=== PATIENT | female | born 1985 | race American Indian/Alaskan Native ===

== ENCOUNTER 2019-11-19 08:09 | Emergency (ER) | payer OTHER ==
--- NOTE | 2019-11-19 08:32 | Emergency Department Report ---
HPI - General Time Seen by Provider: 11/19/19 08:23 - HPI HPI: 34-year-old female presents to the emergency department via EMS from [facility] with a complaint of hypotension. The patient had her vital signs checked as part of their routine and she was found to have a low blood pressure with a systolic of about 76. EMS arrived and the patient's blood pressure was normal at that time but she had to be transferred per protocol. The patient says that she is feeling well. She is currently at [facility] secondary to some previous suicidal ideations and/or attempt of a [place] overdose on Saturday, 5 days ago. She has a past medical history of CHF, mechanical heart valve replacement. She did not take anything, nor was given anything, for the low blood pressure prior to presentation today. ED Review of Systems ROS: Stated complaint: LOW BP Other details as noted in HPI Comment: All other systems reviewed and negative Constitutional: denies: chills, fever Respiratory: denies: cough, shortness of breath Cardiovascular: denies: chest pain, palpitations Gastrointestinal: denies: abdominal pain, vomiting Musculoskeletal: denies: back pain, arthralgia Neurological: denies: headache, weakness Physical Exam - Physical Exam Physical Exam: GENERAL: The patient is well-developed well-nourished. HENT: Normocephalic. Atraumatic. Patient has moist mucous membranes. EYES: Extraocular motions are intact. NECK: Supple. Trachea is midline. CHEST/LUNGS: Clear to auscultation. There is no respiratory distress noted. HEART/CARDIOVASCULAR: Regular. There is no tachycardia. ABDOMEN: Abdomen is soft, nontender. Patient has normal bowel sounds. SKIN: Skin is warm and dry. NEURO: The patient is awake, alert, and oriented. The patient is cooperative. The patient has no focal neurologic deficits. Normal speech. MUSCULOSKELETAL: There is no tenderness or deformity. There is no evidence of acute injury. ED Medical Decision Making - Lab Data Result diagrams: 11/19/19 08:36 11/19/19 08:36 - EKG Data -: EKG Interpreted by Me EKG shows normal: sinus rhythm, axis, intervals, QRS complexes (Right bundle branch block, left posterior fascicular block), ST-T waves Rate: normal - EKG Data When compared to previous EKG there are: previous EKG unavailable Interpretation: other (RBBB, LPFB) - Medical Decision Making This patient presents to the emergency department from [facility] after she was found to have some hypotension during a vitals check. Other than feeling fatigued, the patient has no other physical complaints at this time. Her blood pressure was normal when seen by EMS and is within normal limits upon her arrival to the emergency department. Labs have been unremarkable including CBC, metabolic panel and TSH. The patient did have some transient drop in her blood pressure but was still at a map of 62. She was given a liter of IV fluid and the blood pressure did increase and has remained within normal limits. She has been reevaluated multiple times over multiple hours and still has no complaints. She will be discharged back to [facility] but she has been instructed to return to the ER with any concerns or complaints, or any acute distress. - Differential Diagnosis Hypovolemia, hypothyroidism, anemia Critical Care Time: No Critical care attestation.: If time is entered above; I have spent that time in minutes in the direct care of this critically ill patient, excluding procedure time. ED Disposition Clinical Impression: Medical clearance for psychiatric admission Disposition: [id number] PSY HOSP/PSY UNIT Is pt being admited?: No Condition: Stable Instructions: Hypotension (ED) Additional Instructions: Increase your oral rehydration. Follow-up with a primary care physician when you are done with [facility]. Return to the emergency department immediately with any worsening of your symptoms or any acute distress. Referrals: PCP, Your [Other] - [facility] Time of Disposition: 10:10
[2019-11-19 09:18] LABS: Basophils # (Auto) 0.1 K/mm3 (0.0-0.1); Basophils % (Auto) 1.3 % (0.0-1.8); Eosinophils # (Auto) 0.1 K/mm3 (0.0-0.4); Hematocrit 39.4 % (30.3-42.9); Hemoglobin 13.5 gm/dl (10.1-14.3); Lymphocytes # (Auto) 3.1 K/mm3 (1.2-5.4); Lymphocytes % (Auto) 51.7 % (13.4-35.0); Mean Corpuscular HGB Conc 34 % (30-34); Mean Corpuscular Volume 89 fl (79-97); Monocytes # (Auto) 0.4 K/mm3 (0.0-0.8); Platelet Count 244 K/mm3 (140-440); Red Blood Count 4.43 M/mm3 (3.65-5.03); Red Cell Distribution Width 12.9 % (13.2-15.2)
[2019-11-19 09:40] LABS: BUN/Creatinine Ratio 16; Blood Urea Nitrogen 13 mg/dL (7-17); Calcium 9.1 mg/dL (8.4-10.2); Hemolysis Index 22
[2019-11-19] MEDS ORDERED: SODIUM CHLORIDE 0.9% 1000 ML 1,000 ML IV ONE (10:15)
[2019-11-19 12:50] VITALS: BP 97/49
== END 2019-11-19 14:40 ==
LOC: ED 08:09
DX: I95.9 Hypotension, unspecified (principal); I50.9 Heart failure, unspecified; Z00.8 Encounter for other general examination; Z95.4 Presence of other heart-valve replacement
CPT/HCPCS: 36415; 80048; 84443; 85025; 93005; 93010; 96360; 99284; J7030